=== PATIENT | female | born 1975 | race Caucasian/White ===

== ENCOUNTER 2018-10-21 18:55 | Inpatient (IN) | payer OTHER ==
[~2018-10-21] VITALS: Ht 175.3 cm; Wt 59.0 kg
[2018-10-21 20:58] VITALS: BP_SYST 113
[2018-10-21] MEDS ORDERED: ONDANSETRON HCL 4 MG/2 ML VIAL IVP PRN (22:00)
[2018-10-21] MEDS ORDERED: ACETAMINOPHEN 325 MG TABLET PO PRN (22:00)
[2018-10-21] MEDS ORDERED: LORA-259 PO (22:09)
[2018-10-21] MEDS ORDERED: LEVE1000 PO (22:09)
[2018-10-21] MEDS: levETIRAcetam 500 MG TABLET PO SCH (22:40)
[2018-10-21] MEDS: D5NS 1,000 ML IV SCH (22:40)
[2018-10-21] MEDS: HYDROcodone/ACETAMIN 5-325 MG TAB (NORCO/ VICODIN) PO PRN (22:43)
[2018-10-22 00:30] VITALS: BP_SYST 104
[2018-10-22] MEDS ORDERED: LEVOFLOXACIN 500 MG/D5W 100 ML IV SCH (01:00)
[2018-10-22] MEDS: chlordiazePOXIDE HCL 25 MG CAPSULE PO SCH ×5 (01:07→20:58)
[2018-10-22] MEDS ORDERED: LEVOFLOXACIN 500 MG/D5W 100 ML IV ONE ×2 (01:19→02:00)
[2018-10-22 06:56] LABS: BASOPHILS # (AUTO) 0.1 K/uL (0.0-0.2); BASOPHILS % (AUTO) 1.9 % (0.0-2.0); EOSINOPHILS # (AUTO) 0.2 K/uL (0.0-0.4); EOSINOPHILS % (AUTO) 3.8 % (0.0-4.0); HEMATOCRIT 31.2 % (36-48); HEMOGLOBIN 10.2 g/dL (12.0-16.0); LYMPHOCYTES # (AUTO) 1.7 K/uL (1.0-5.5); LYMPHOCYTES % (AUTO) 32.3 % (20.5-51.5); MEAN CORPUSCULAR HEMOGLOBIN 32 pg (27-31); MEAN CORPUSCULAR HGB CONC 33 % (32-36); MEAN CORPUSCULAR VOLUME 98 fL (79.0-98.0); MONOCYTES # (AUTO) 0.5 K/uL (0.0-1.0); MONOCYTES % (AUTO) 8.9 % (1.7-9.3); NEUTROPHILS # (AUTO) 2.7 K/uL (1.8-7.7); NEUTROPHILS % (AUTO) 53.1 % (40.0-70.0); PLATELET COUNT (AUTO) 231 K/uL (130-430); RED BLOOD CELL COUNT(AUTO) 3.19 MIL/uL (4.2-6.2); RED CELL DISTRIBUTION WIDTH 13.9 % (9.0-15.0); WHITE BLOOD COUNT (AUTO) 5.2 K/uL (4.8-10.8)
[2018-10-22 07:04] LABS: ALBUMIN 2.6 g/dL (3.4-4.8); CALCIUM 7.6 mg/dL (8.4-11.0); CREATININE 0.66 mg/dL (0.55-1.30); POTASSIUM 3.9 mmol/L (3.5-5.1); TOTAL BILIRUBIN 0.4 mg/dL (0.0-1.0)
[2018-10-22 08:56] VITALS: BP_SYST 109
[2018-10-22] MEDS: levETIRAcetam 500 MG TABLET PO SCH ×2 (08:58→20:01)
[2018-10-22] MEDS: HYDROcodone/ACETAMIN 5-325 MG TAB (NORCO/ VICODIN) PO PRN ×3 (09:13→20:08)
[2018-10-22 09:15] LABS: BILIRUBIN,URINE NEGATIVE (NEGATIVE); BLOOD, URINE NEGATIVE (NEGATIVE); CLARITY/URINE SL HAZY (CLEAR); COLOR,URINE YELLOW (YELLOW); GLUCOSE,URINE NEGATIVE (NEGATIVE); KETONES,URINE NEGATIVE (NEGATIVE); LEUKOCYTE ESTERASE ,URINE 1+ (NEGATIVE); NITRITE, URINE NEGATIVE (NEGATIVE); PROTEIN URINE NEGATIVE (NEGATIVE); UROBILINOGEN,URINE 0.2 (0.2-1.0)
[2018-10-22] MEDS: BANANA BAG 1 EA, FOLIC ACID 1 MG, THIAMINE HCL 100 MG, MAGNESIUM SULFATE 1 GM, MVI 10 M... IV SCH ×5 (09:18)
[2018-10-22 09:43] LABS: BACTERIA,URINE FEW /HPF (None Seen); MUCUS,URINE None Seen /LPF (None Seen); RBC,URINE 0-3 /HPF (0-3); WBC,URINE 50-80 /HPF (0-3)
[2018-10-22] MEDS: D5NS 1,000 ML IV SCH ×2 (11:08→23:23)
[2018-10-22 12:02] VITALS: BP_SYST 105
[2018-10-22] MEDS: LORazepam 2 MG/ML VIAL IVP PRN ×2 (15:58→22:03)
[2018-10-22 16:02] VITALS: BP_SYST 108
[2018-10-22 20:00] VITALS: BP_SYST 108
[2018-10-22] MEDS: LEVOFLOXACIN 500 MG/D5W 100 ML IV SCH (20:01)
[2018-10-23 00:06] VITALS: BP_SYST 115
[2018-10-23] MEDS: LORazepam 2 MG/ML VIAL IVP PRN ×4 (02:33→22:01)
[2018-10-23 08:08] VITALS: BP_SYST 101
[2018-10-23] MEDS: levETIRAcetam 500 MG TABLET PO SCH ×2 (08:15→20:42)
[2018-10-23] MEDS: BANANA BAG 1 EA, FOLIC ACID 1 MG, THIAMINE HCL 100 MG, MAGNESIUM SULFATE 1 GM, MVI 10 M... IV SCH ×5 (08:16)
[2018-10-23] MEDS: chlordiazePOXIDE HCL 25 MG CAPSULE PO SCH ×4 (08:16→20:42)
[2018-10-23 12:08] VITALS: BP_SYST 118
[2018-10-23] MEDS: D5NS 1,000 ML IV SCH (14:52)
[2018-10-23] MEDS: HYDROcodone/ACETAMIN 5-325 MG TAB (NORCO/ VICODIN) PO PRN ×2 (14:54→18:43)
[2018-10-23 16:20] VITALS: BP_SYST 147
[2018-10-23 19:57] VITALS: BP_SYST 105
[2018-10-23] MEDS: LEVOFLOXACIN 500 MG/D5W 100 ML IV SCH (20:42)
[2018-10-24] MEDS: LORazepam 2 MG/ML VIAL IVP PRN ×3 (02:02→11:06)
[2018-10-24] MEDS: D5NS 1,000 ML IV SCH (02:04)
[2018-10-24 04:13] VITALS: BP_SYST 106
[2018-10-24 07:42] LABS: BASOPHILS % (AUTO) 0.7 % (0.0-2.0); EOSINOPHILS # (AUTO) 0.3 K/uL (0.0-0.4); EOSINOPHILS % (AUTO) 7.2 % (0.0-4.0); HEMATOCRIT 32.6 % (36-48); HEMOGLOBIN 10.8 g/dL (12.0-16.0); LYMPHOCYTES # (AUTO) 1.2 K/uL (1.0-5.5); LYMPHOCYTES % (AUTO) 28.7 % (20.5-51.5); MEAN CORPUSCULAR HEMOGLOBIN 32 pg (27-31); MEAN CORPUSCULAR HGB CONC 33 % (32-36); MEAN CORPUSCULAR VOLUME 97 fL (79.0-98.0); MONOCYTES # (AUTO) 0.5 K/uL (0.0-1.0); MONOCYTES % (AUTO) 11.6 % (1.7-9.3); NEUTROPHILS # (AUTO) 2.1 K/uL (1.8-7.7); NEUTROPHILS % (AUTO) 51.8 % (40.0-70.0); PLATELET COUNT (AUTO) 220 K/uL (130-430); RED BLOOD CELL COUNT(AUTO) 3.37 MIL/uL (4.2-6.2); RED CELL DISTRIBUTION WIDTH 13.6 % (9.0-15.0); WHITE BLOOD COUNT (AUTO) 4.1 K/uL (4.8-10.8)
[2018-10-24 07:59] LABS: ALBUMIN 2.8 g/dL (3.4-4.8); CALCIUM 8.7 mg/dL (8.4-11.0); CREATININE 0.61 mg/dL (0.55-1.30); POTASSIUM 3.9 mmol/L (3.5-5.1); TOTAL BILIRUBIN 0.3 mg/dL (0.0-1.0)
[2018-10-24 08:00] VITALS: BP_SYST 106
[2018-10-24] MEDS: chlordiazePOXIDE HCL 25 MG CAPSULE PO SCH (10:04)
[2018-10-24] MEDS: levETIRAcetam 500 MG TABLET PO SCH (10:04)
[2018-10-24] MEDS ORDERED: FAMO-132 PO (10:11)
[2018-10-24] MEDS ORDERED: THIA100T13 PO (10:12)
[2018-10-24] MEDS ORDERED: FOLI-43 PO (10:12)
[2018-10-24] MEDS ORDERED: IBUP-1968 PO (10:13)
[2018-10-24] MEDS ORDERED: DISU250T7 PO (10:14)
[2018-10-24] MEDS ORDERED: MORPHINE 2 MG/ML INJ. SYRINGE IVP ONE (10:15)
[2018-10-24] MEDS: BANANA BAG 1 EA, FOLIC ACID 1 MG, THIAMINE HCL 100 MG, MAGNESIUM SULFATE 1 GM, MVI 10 M... IV SCH ×5 (10:23)
[2018-10-24 12:18] VITALS: BP_SYST 105
[2018-10-24 14:18] VITALS: BP_SYST 105
== END 2018-10-24 14:45 | disposition home or self-care (01) | DRG 463 ==
LOC: SMU 20:40
PROVIDERS: ADMIT Internal Medicine; ATTEND Internal Medicine Hospice and Palliative Medicine
DX: N39.0 Urinary tract infection, site not specified (principal); E43 Unspecified severe protein-calorie malnutrition; G93.41 Metabolic encephalopathy; K70.9 Alcoholic liver disease, unspecified; E86.0 Dehydration; F10.129 Alcohol abuse with intoxication, unspecified; F41.9 Anxiety disorder, unspecified; G40.909 Epilepsy, unspecified, not intractable, without status epilepticus; G89.29 Other chronic pain; Z85.41 Personal history of malignant neoplasm of cervix uteri
CPT/HCPCS: 36415; 80053; 81000-TC; 85025; 87081; 87086; G0482; J1956; J2060; J2270; J3411; J3475; J3490; J7030; J7042; J7060